=== PATIENT | female | born 1995 | race Caucasian/White ===

== ENCOUNTER → 2016-10-03 | Outpatient (CLI) | payer BC | END | disposition home or self-care (01) | LOC: MMGSC 11:00 | PROVIDERS: ATTEND Family Medicine | DX: N76.0 Acute vaginitis (principal) | CPT/HCPCS: 87070; 87205; 87491; 87591 ==

== ENCOUNTER → 2018-07-16 | Outpatient (CLI) | payer BC, OTHER ==
--- NOTE | 2018-07-17 06:53 | MR ---
EXAMINATION TYPE: MR knee LT wo con DATE OF EXAM: 07/16/2018 COMPARISON: Outside left knee x-ray July 02, 2018 HISTORY: Lt knee pain x 5 wks with swelling after walking injury per patient. TECHNIQUE: Multiplanar, multisequence images of the knee is performed without IV contrast. FINDINGS: MEDIAL MENISCUS: Anterior and posterior horns are intact without tear. LATERAL MENISCUS: Anterior and posterior horns are intact without tear. CRUCIATE LIGAMENTS: The anterior and posterior cruciate ligaments are intact and unremarkable. COLLATERAL LIGAMENTS: The medial collateral ligament and lateral collateral ligament complex are inta ct and unremarkable. EXTENSOR MECHANISM: Visualized quadriceps and patellar tendons are intact. EFFUSION: There is small to moderate size suprapatellar joint effusion. POPLITEAL CYST: No popliteal/george cyst. TRICOMPARTMENT SPACES: Tricompartment joint spaces are maintained. No significant spurring is seen. CARTILAGE: Tricompartment articular cartilage is preserved. BONE MARROW SIGNAL: There is increased T2 signal involving the anterior aspect of the distal lateral femoral condyle with additional areas of involvement involving the inferior medial patellar pole. Med ial patellar retinaculum is felt intact with slight bulging near axial image 17. OTHER: Underlying trochlear dysplasia is present. IMPRESSION: 1. Osseous contusion pattern consistent with injury related to transient lateral patellar dislocation as detailed above. No definitive tear of the medial patellar retinaculum is identified. Underlying t rochlear dysplasia is present. Reactive small to moderate size suprapatellar joint effusion noted.
== END | disposition home or self-care (01) ==
LOC: RADMRIMAIN 16:07
PROVIDERS: ATTEND Orthopaedic Surgery
DX: S80.02XA Contusion of left knee, initial encounter (principal); M25.462 Effusion, left knee

== ENCOUNTER → 2018-08-26 | Outpatient (CLI) | payer BC, OTHER ==
[2018-08-26 16:49] LABS: Basophils % (A) 0 %; Eosinophils # (A) 0.2 k/uL (0-0.7); Eosinophils % (A) 3 %; HCT 37.9 % (34.0-46.0); HGB 13.4 gm/dL (11.4-16.0); Lymphocytes # (A) 2.1 k/uL (1.0-4.8); Lymphocytes % (A) 38 %; MCH 29.4 pg (25.0-35.0); MCHC 35.4 g/dL (31.0-37.0); MCV 83.1 fL (80.0-100.0); Mean Platelet Volume 6.5; Monocytes # (A) 0.2 k/uL (0-1.0); Monocytes % (A) 4 %; Neutrophils # (A) 2.9 k/uL (1.3-7.7); Neutrophils % (A) 52 %; Platelet Count 243 k/uL (150-450); RBC 4.56 m/uL (3.80-5.40); RDW 13.4 % (11.5-15.5); WBC 5.6 k/uL (3.8-10.6)
[2018-08-26 17:06] LABS: Potassium 4.8 mmol/L (3.5-5.1)
== END ==
LOC: LABPAT 14:57
PROVIDERS: ATTEND Orthopaedic Surgery
DX: Z01.812 Encounter for preprocedural laboratory examination (principal); M25.362 Other instability, left knee
CPT/HCPCS: 36415; 80051; 85025

== ENCOUNTER 2018-08-29 10:12 | Day surgery (SDC) | payer BC, OTHER ==
[2018-08-26 14:23] VITALS: BMI 19.5
--- NOTE | 2018-08-28 14:42 | HP ---
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 We discussed options. She elected to proceed with medial patellofemoral ligament reconstruction of the left knee utilizing allograft. Consent was obtained. PAST MEDICAL HISTORY: Noncontributory. PAST SURGICAL HISTORY: Noncontributory. DAILY MEDICATIONS: None. ALLERGIES: None reported. SOCIAL HISTORY: She denies tobacco use. PHYSICAL EVALUATION OF THE LEFT KNEE: Range of motion is 0 to 120. Mild effusion. Tenderness along the medial capsule. Positive apprehension sign, +2 lateral glide of the patella. RADIOGRAPHS OF THE LEFT KNEE: Revealed mild patellar subluxation laterally. An MRI of the left knee revealed effusion and contusion. No evidence for meniscal tear. IMPRESSION: Chronic left knee patellar instability. PLAN: Left knee medial patellofemoral ligament reconstruction. MMODL / IJN: [id number] /
[~2018-08-29 10:12] MED LIST: DEXAMETHASONE SOD PHOSPHATE 10 MG/ML 1 ML VIAL IV ONE; LACTATED RINGERS 1,000 ML IV SCH; LIDOCAINE 1% 20 ML VIAL (10MG/ML) FOR IV START INTRADERMA PRN; ONDANSETRON 4 MG/2 ML VIAL IVP ONE; SCOPOLAMINE 1.5MG/72HR PATCH TRANSDERM ONE; ceFAZolin 1,000 MG in DEXTROSE/WATER 1 50ML.BAG IV ONE
[2018-08-29] MEDS ORDERED: LACTATED RINGERS 1,000 ML IV ONE ×2 (10:41→12:55)
[2018-08-29] MEDS ORDERED: MIDAZOLAM 2 MG/2 ML VIAL ONE (11:31)
[2018-08-29] MEDS ORDERED: SUCCINYLCHOLINE CHLORIDE 100 MG/5 ML SYR IV ONE (11:31)
[2018-08-29] MEDS ORDERED: KETOROLAC 30 MG/ML 1 ML VIAL ONE (11:31)
[2018-08-29] MEDS ORDERED: fentaNYL (PF) 50 MCG/ML 2 ML AMP ONE (11:31)
[2018-08-29] MEDS ORDERED: PROPOFOL 10 MG/ML 20 ML VIAL IV ONE (11:31)
[2018-08-29] MEDS ORDERED: HYDROmorphone (PF) 1 MG/ML ONE (11:31)
[2018-08-29] MEDS ORDERED: SODIUM CHLORIDE 0.9% 50 ML with ceFAZolin 2,000 MG IV ONE ×2 (11:35)
[2018-08-29] MEDS ORDERED: BUPIVACAINE (PF) 0.25% 30 ML VIAL SQ ONE (12:54)
--- NOTE | 2018-08-29 13:10 | P.OP ---
Date of Procedure: 08/29/18 Preoperative Diagnosis: Left knee patellar instability with history of recurrent dislocations Postoperative Diagnosis: Same Procedure(s) Performed: Left knee open medial patellofemoral ligament reconstruction with allograft Implants: 23.5 mm Arthrex swivel lock anchors and 1 Arthrex Endobutton Anesthesia: BARBER, local Surgeon: Arun Medeiros Junior Business Analyst #1: Neel Montelongo Estimated Blood Loss (ml): 5 Pathology: none sent Condition: stable Disposition: PACU Indications for Procedure: 2-year-old patient seen with left knee patellar instability history of recurrent dislocations. I recommended open medial Elie femoral ligament reconstruction utilizing allograft. I discussed the procedure, risks, complications and recovery. Patient was agreeable and consent was obtained. Operative Findings: see description of procedure Description of Procedure: The patient was taken to the operative suite. The patient had received preoperative IV antibiotics. The patient underwent a general anesthetic by the department of anesthesia. The left lower extremity was prepped and draped in the normal sterile orthopedic fashion. The extremity was elevated and tourniquet was insufflated to 300. I made a 2.5 cm incision beginning at the superior medial corner of the patella centered to the center of the medial edge the patella. I dissected down exposing medial edge of the patella. Under fluoroscopic guidance I introduced a guidewire 3 mm distal to the proximal medial corner the patella and a second guidewire 15 mm distal to that appear all to the first 1. I overdrilled both the guide pins with a 3.5 mm canal reamer to a depth of 18 mm. Juan Manuel PHELPS was preparing the gracilis allograft for implantation. Once the graft was completed was brought to the operative field. We then introduced the tails of 1 graft through the eyelet of a 3.5 mm bio composite anchor procedure graft into the proximal drill hole until it was fully seated and then introduced our anchor compressing our allograft and securing it nicely. I then passed the tight rope implant over the graft and then repeated the swivel lock insertion procedure with the second graft end. I then brought the C-arm back into the operative field and utilizing the MPFL template to help establish position of the guidepin I introduced the guidepin in the appropriate position approximate 1 mm anterior to the posterior course etc. extension line and 2.5 mm distal to the posterior articular border of the medial femoral condyle. I guided the superior laterally and under fluoroscopy penetrated the lateral cortex of the femur. This is an brought out through the skin. I now overreamed the guidewire with a reamer. I now dissected subcutaneously and passed my graft through the medial incision area. The tight rope sutures were now shuttled through our tunnel and the graft was introduced and a tunnel behind her bottom. Directly under fluoroscopy we flipped the button and noted it was seated completely. We now carefully tensioned the graft making sure the lateral patellar facet was flushed the lateral femoral condyle with the knee at 30 of flexion. Once was accomplished we noted good fixation of our graft. All residual suture limbs were clipped. We again checked our graft was appropriate position. The wound was irrigated irrigated with normal sitting solution. That medial periosteal sleeve of the patella was repaired with 0 Vicryl. The subcu used tissues of both incisions were repaired with 2-0 Vicryl followed by subcuticular running suture and exophytic. Sterile dressings were applied. The tourniquet was released and immediate capillary refill noted of the extremity. We infiltrated the incision area with quarter percent plain Marcaine totaling 10 mL. The extremity is placed into a knee immobilizer. Patient was then awakened, transferred to a bed and recovery stable condition. Juan Manuel PHELPS assisted with the procedure.
[2018-08-29 13:19] VITALS: TEMP 97
--- NOTE | 2018-08-29 13:30 | FL ---
EXAMINATION TYPE: FL guidance operating room, XR knee limited LT DATE OF EXAM: 08/29/2018 CLINICAL HISTORY: Left knee ligament repair. TECHNIQUE: Fluoroscopy. COMPARISON: MRI left knee July 16, 2018. FINDINGS: Fluoroscopic guidance was provided during ligament repair procedure performed by Dr. Abhay mcmahon. A total of 51 seconds of fluoroscopic time was utilized during the procedure and one spot imag e is acquired. Single image acquired shows new fixation hardware lateral distal femoral metaphysis IMPRESSION: As Above.
[2018-08-29] MEDS: HYDROmorphone 1 MG/ML 1 ML SYRINGE IVP PRN ×2 (14:01→14:06)
[2018-08-29] MEDS ORDERED: HYDROcodone/APAP 5-325MG 1 EACH TAB PO ONE (14:35)
[2018-08-29 14:57] VITALS: BP 109/68; PULSE 85; RESP 16
== END 2018-08-29 15:18 | disposition home or self-care (01) ==
LOC: OR 10:12
PROVIDERS: ATTEND Orthopaedic Surgery
DX: M23.52 Chronic instability of knee, left knee (principal); M24.462 Recurrent dislocation, left knee; M25.462 Effusion, left knee; S80.02XA Contusion of left knee, initial encounter; X58.XXXA Exposure to other specified factors, initial encounter
CPT/HCPCS: 81025; 73560; 27427; C1713; J2250; J1100; J2405; J0690; J3010; J1885; J1170; J0330; J2704